=== PATIENT | female | born 1950 ===

== ENCOUNTER 2016-11-23 08:51 | Day surgery (SDC) | payer MEDICARE, OTHER ==
[2016-11-23] MEDS ORDERED: ACETAZOLAMIDE 500 MG CER ONE (09:27)
[2016-11-23] MEDS: PROPARACAINE HCL 0.5% OPHTHALMIC SOL ONE ×2 (09:45→10:50)
[2016-11-23] MEDS: PHENYLEPHRINE HCL 10% OPHTHAL SOL ONE ×3 (09:46→10:03)
[2016-11-23] MEDS: MOXIFLOXACIN-HOME SOL RIGHTEYE ONE ×2 (09:47→11:09)
[2016-11-23] MEDS: CYCLOPENTOLATE 1% SOL ONE ×2 (09:47→10:04)
[2016-11-23] MEDS ORDERED: NEPAFENAC 1.7 ML DROPS.SUSP RIGHTEYE ONE ×2 (09:48→10:06)
[2016-11-23] MEDS ORDERED: PROPARACAINE HCL 0.5% OPHTHALMIC SOL RIGHTEYE ONE (10:02)
[2016-11-23] MEDS ORDERED: MOXIFLOXACIN-HOME SOL RIGHTEYE ONE (10:05)
[2016-11-23] MEDS ORDERED: MIDAZOLAM 2 MG/2 ML SOL ONE (10:29)
[2016-11-23] MEDS ORDERED: BSS 500 ML 500 ML IR ONE (10:46)
[2016-11-23] MEDS ORDERED: POVIDONE IODINE 5% SOL ONE (10:46)
[2016-11-23] MEDS ORDERED: LIDOCAINE HCL 1% MPF SOL ONE (10:46)
[2016-11-23 11:33] VITALS: BP 122/81; PULSE 68; RESP 20; TEMP 97.8; O2SAT 99
== END 2016-11-23 11:50 | disposition home or self-care (01) | DRG 125 ==
LOC: SURG 08:51
PROVIDERS: ATTEND Ophthalmology
DX: H25.9 Unspecified age-related cataract (principal)
CPT/HCPCS: J2250; J2001

== ENCOUNTER 2016-12-21 06:00 | Day surgery (SDC) | payer MEDICARE, OTHER ==
[~2016-12-21 06:00] MED LIST: ACETAZOLAMIDE 500 MG CER ONE
[2016-12-21] MEDS: PHENYLEPHRINE HCL 10% OPHTHAL SOL ONE ×2 (06:16→06:40)
[2016-12-21] MEDS: PROPARACAINE HCL 0.5% OPHTHALMIC SOL ONE ×3 (06:16→07:38)
[2016-12-21] MEDS: CYCLOPENTOLATE 1% SOL ONE ×2 (06:17→06:41)
[2016-12-21] MEDS: MOXIFLOXACIN-HOME SOL LEFTEYE ONE ×3 (06:17→07:57)
[2016-12-21] MEDS ORDERED: NEPAFENAC 1.7 ML DROPS.SUSP LEFTEYE ONE ×2 (06:18→06:43)
[2016-12-21] MEDS ORDERED: LIDOCAINE HCL 1% MPF SOL ONE (06:56)
[2016-12-21] MEDS ORDERED: POVIDONE IODINE 5% SOL ONE (06:56)
[2016-12-21] MEDS ORDERED: BSS 500 ML 500 ML IR ONE (06:56)
[2016-12-21] MEDS ORDERED: MIDAZOLAM 2 MG/2 ML SOL ONE (07:06)
[2016-12-21 08:22] VITALS: RESP 20; TEMP 98.3
[2016-12-21 08:26] VITALS: BP 118/64; PULSE 69; O2SAT 96
== END 2016-12-21 08:35 | disposition home or self-care (01) | DRG 125 ==
LOC: SURG 06:00
PROVIDERS: ATTEND Ophthalmology
DX: H25.9 Unspecified age-related cataract (principal); E11.9 Type 2 diabetes mellitus without complications; Z79.4 Long term (current) use of insulin
CPT/HCPCS: J2250; J2001